=== PATIENT | male | born 1990 | race Two or more races ===

== ENCOUNTER 2024-10-07 20:33 | Emergency (ER) | payer SELFPAY ==
[~2024-10-07] VITALS: Ht 185.4 cm; Wt 90.9 kg
[2024-10-07 20:49] VITALS: BP 157/110; PULSE 113; RESP 18; O2SAT 96
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
[2024-10-07] MEDS: TETANUS-DIPTH-ACEL PERTUSSIS 0.5ML SYR Tdap IM ONE (21:56)
== END 2024-10-07 21:57 | disposition home or self-care (01) ==
LOC: ER 20:33
DX: S01.81XA Laceration without foreign body of other part of head, initial encounter (principal); W55.89XA Other contact with other mammals, initial encounter; Y93.89 Activity, other specified; Y92.89 Other specified places as the place of occurrence of the external cause; Y99.8 Other external cause status
CPT/HCPCS: 12011